=== PATIENT | female | born 1950 | race Caucasian/White ===

== ENCOUNTER 2016-11-06 12:27 | Emergency (ER) | payer OTHER ==
[2016-11-06] MEDS ORDERED: INDOMETHACIN 25 MG CAP PO ONE (13:21)
--- NOTE | 2016-11-06 13:32 | EDPHY ---
H & P Time Seen by Provider: 11/06/16 12:56 HPI/ROS: CHIEF COMPLAINT: Left foot pain HISTORY OF PRESENT ILLNESS: Patient is had increasing pain over the last week. Redness and swelling of the base of her left great toe. Mildly worse with standing on in with movement. No recent injury. REVIEW OF SYSTEMS: No fevers or chills PAST MEDICAL HISTORY: Negative for gout. History of ovarian cancer. Hypertension. Hypothyroid. 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 Social history: Works as a librarian assistant General Appearance: Alert and conversant, cooperative. Compartment soft in the left lower leg. Normal range of motion of the ankle. No lymphangitis and no redness in the ankle or leg. Patient does have redness and warmth and very mild tenderness at the base of the left great toe medially. I can range her toe 20 degrees in either direction without significant change in pain. Preserved sensation which is slightly decreased but is at baseline, preserved motor function and capillary refill in the foot. Emergency Department course/MDM: Verbal consent obtained for joint aspiration. Patient sterile ChloraPrep and 1 % xylocaine anesthesia. Aspiration of the left great toe MTP joint unsuccessful. X-ray performed of the left foot. Oral indomethacin 25 mg. She does not have history of peptic ulcer disease or GI bleed. Much more likely to be gout with 1 week of symptoms, location, not febrile, no lymphangitis, can range the joint significantly without change in her symptoms. 1410: Patient tells me she already has follow-up arranged with her physician next week for some slightly elevated liver enzymes. Discussed with pharmacy does not feel this is a contraindication for indomethacin. Smoking Status: Never smoked Constitutional: Initial Vital Signs Temperature (C) 36.9 C 11/06/16 12:30 Heart Rate 78 11/06/16 12:30 Respiratory Rate 16 11/06/16 12:30 Blood Pressure 141/90 H 11/06/16 12:30 O2 Sat (%) 96 11/06/16 12:30 O2 Delivery Mode Room Air Allergies/Adverse Reactions: prochlorperazine [From Compazine] Allergy (Verified 11/06/16 12:29) prochlorperazine edisylate [From Compazine] Allergy (Verified 11/06/16 12:29) prochlorperazine maleate [From Compazine] Allergy (Verified 11/06/16 12:29) Home Medications: Medication Instructions Recorded Hydrochlorothiazide 11/06/16 Indomethacin [Indocin 25 mg (*)] 25 mg PO Q8 #30 cap 11/06/16 Prozac 20 MG (*) 11/06/16 Synthroid 11/06/16 MDM/Departure - MDM Diagnostics: X-ray left foot viewed by myself personally negative. Medications Given: Discontinued Medications Indomethacin (Indocin) 25 mg PO EDNOW ONE Stop: 11/06/16 13:22 Last Admin: 11/06/16 13:29 Dose: 25 mg - Depart Disposition: Home, Routine, Self-Care Clinical Impression: Gout Condition: Good Instructions: Gout (ED) Additional Instructions: Return immediately for worsening redness, increasing pain, red streaks up the leg, fever or chills. Prescriptions: Indomethacin [Indocin 25 mg (*)] 25 mg PO Q8 #30 cap Referrals: Dayanara Rowell MD [Primary Care Provider] - 3-4 days, if not improved
[2016-11-06 14:23] VITALS: BP 134/81; PULSE 76; RESP 15; TEMP 98.8; O2SAT 97
--- NOTE | 2016-11-06 14:30 | DX ---
Left foot, 3 Views HISTORY: Pain and swelling of first metatarsophalangeal joint. FINDINGS: Mild soft tissue swelling is seen medial to the first metatarsal head. Normal mineralizatio n and alignment. No evidence for acute fracture or dislocation. No significant joint narrowing or per iarticular erosion. IMPRESSION: No significant osseous abnormality.
== END 2016-11-06 14:22 | disposition home or self-care (01) ==
DX: M10.9 Gout, unspecified (principal); I10 Essential (primary) hypertension; Z85.43 Personal history of malignant neoplasm of ovary

== ENCOUNTER → 2016-11-20 | Outpatient (CLI) | payer OTHER ==
--- NOTE | 2016-11-20 16:28 | DX ---
Left Foot , Three History: Pain, gout Comparison: November 06, 2016 Findings: There is still swelling medial to the first metatarsal head and lateral to the fifth metata rsal phalangeal joint, both without radiopaque crystal deposition or underlying periarticular bone er osion. Overall mineralization and alignment are anatomic.. Impression: No crystal deposition or erosive change.
== END ==
LOC: GIMAGING 16:02
PROVIDERS: ATTEND Family Medicine
DX: M79.672 Pain in left foot (principal)
CPT/HCPCS: 73630-PO

== ENCOUNTER → 2019-03-07 | Outpatient (CLI) | payer OTHER | LOC: GIMAGING 11:57 ==